=== PATIENT | female | born 1975 | race Caucasian/White ===

== ENCOUNTER 2022-03-05 09:40 | Emergency (ER) | payer OTHER ==
[~2022-03-05] VITALS: Ht 157.5 cm; Wt 49.0 kg
[2022-03-05] MEDS ORDERED: LEXAPRO5 MG PO (10:00)
[2022-03-05] MEDS ORDERED: PEPCID AC20 MG PO (10:21)
[2022-03-05] MEDS ORDERED: INTESTINEX680 M1 PO (10:21)
[2022-03-05] MEDS ORDERED: CLEOCIN HCL300 MG PO (10:21)
== END 2022-03-05 11:11 | disposition home or self-care (01) ==
LOC: ER 09:40
DX: S61.411A Laceration without foreign body of right hand, initial encounter (principal); W55.01XA Bitten by cat, initial encounter; Y93.9 Activity, unspecified; Y92.009 Unspecified place in unspecified non-institutional (private) residence as the place of occurrence of the external cause; Y99.9 Unspecified external cause status